=== PATIENT | female | born 1995 | race Caucasian/White ===

== ENCOUNTER → 2017-04-07 | Outpatient (CLI) | payer BC ==
[2017-04-10 12:09] LABS: CHLAMYDIA TRACH RNA*** NOT DETECTED (NOT DETECTED); GC (NEIS GONORRHOEAE)RNA** NOT DETECTED (NOT DETECTED); TRICHOMONAS VAGINALIS RNA** NOT DETECTED (NOT DETECTED)
== END | disposition home or self-care (01) ==
LOC: C.LABSPEC 16:16
PROVIDERS: ATTEND Physician Assistant
DX: R30.0 Dysuria (principal); Z86.19 Personal history of other infectious and parasitic diseases

== ENCOUNTER → 2017-04-08 | Outpatient (CLI) | payer BC ==
[2017-04-08 13:40] LABS: URINE APPEARANCE CLEAR (CLEAR); URINE BILIRUBIN NEG (NEG); URINE COLOR YELLOW; URINE EPITHELIAL CELL AUTO >30 /lpf (0-5); URINE NITRITE NEG (NEG); URINE PH 6.5 (4.5-7.5); UROBILINOGEN NEG (NEG)
[2017-04-08 13:48] LABS: MANUAL MICROSCOPIC REQUIRED? NO; REVIEW REQ? NO
== END | disposition home or self-care (01) ==
LOC: C.LAB1850 12:02
PROVIDERS: ATTEND Physician Assistant
DX: R30.0 Dysuria (principal)

== ENCOUNTER → 2017-07-22 | Outpatient (CLI) | payer BC | END | disposition home or self-care (01) | LOC: C.LABSPEC 17:29 | PROVIDERS: ATTEND Physician Assistant | DX: Z01.419 Encounter for gynecological examination (general) (routine) without abnormal findings (principal) ==

== ENCOUNTER → 2017-08-19 | Outpatient (CLI) | payer BC | END | disposition home or self-care (01) | LOC: C.LABSPEC 13:15 | PROVIDERS: ATTEND Physician Assistant | DX: N89.8 Other specified noninflammatory disorders of vagina (principal) ==

== ENCOUNTER 2019-01-01 14:37 | Inpatient (IN) ==
[2019-01-01] MEDS ORDERED: MECLIZINE HCL 25 MG TAB PO STA (15:25)
[2019-01-01] MEDS ORDERED: SODIUM CHLORIDE 0.9% 1000ML 1,000 ML IV ONE (15:25)
--- NOTE | 2019-01-01 15:46 | Emergency Department Note ---
History of Present Illness General Chief Complaint: Altered Mental Status Stated Complaint: VISION PROBLEMS Source: patient Mode of arrival: ambulatory Limitations: no limitations History of Present Illness Provider complaint: altered mental status and confusion Onset (ago): hour(s) 4 Timing confirmed by: friend Severity: moderate Current Pain Intensity: 0 Consistency of symptoms: getting worse Context: no alcohol abuse, no drug abuse, no change in medication, no history of similar presentation, no trauma, no recent fever, no diabetes and no seizure disorder Associated symptoms: + headaches and + other (dizziness) Treatments prior to arrival: none This 23-year-old female patient presents emergency department today, ambulatory, accompanied by a male friend. The patient is complaining of "dizzy". She states this began this morning but has been progressively worsening. The patient's friend who is accompanying her said that over the past few hours, she has been complaining of being very dizzy, think she is having difficulty seeing and is seeing things that are not there. He states that she is saying random things but do not make sense. The patient states she did start a new job 1 week ago. She had a little bit of a headache earlier today, but denies any ongoing h eadache. She initially states she was having some diplopia, then states she was having some blurry vision, but then states she is uncertain if those things are true. The symptoms seemed to significantly worsened 1 hour ago. She states that she last saw an house detective in [place] last year, but then states she thinks she has seen an tin worker on [facility] since then, but is unsure. She does wear glasses and contacts and states she currently has her contacts in. The patient states before the dizziness was only with standing, but then she developed the dizziness at all times. She describes this as things are spinning. She denies any pain including chest pain, abdominal pain, nausea, vomiting, numbness, tingling, weakness, difficulty breathing, urinary symptoms, diarrhea, constipation, neck pain, or recent trauma. She denies any recent illness, cough, URI symptoms, or fever. When asked if she was having any abdominal pain, the patient was confused and asked me to clarify the question. Her last menstrual period was 1 week ago, and she believes this was normal. She is sexually active, but states she took a test after her most recent sexual encounter 2 weeks ago. She denies any drug or alcohol use, and states she does not believe she could have been drugged. Home Medications Home Medications Medication Instructions Recorded Confirmed Type doxycycline monohydrate 50 mg 50 mg PO BID #30 tab 11/02/18 01/01/19 History tablet drospirenone-ethinyl estradiol 1 tab PO DAILY 01/01/19 01/01/19 History [Ocella] Allergies Allergy/AdvReac Type Severity Reaction Status Date / Time No Known Allergies Allergy Unverified 01/01/19 17:14 Past Med/Surg History Medical History Acne Social History Preferred Language: Japanese Beliefs That Will Affect Care: None marital status: Single Current Living Situation: Family current occupational status: employed current occupation: direct support Other Information That Helps Us Care for You: No Feels Safe at Home: Yes Safety Concerns: Feels Safe At This Time Smoking Status: Never smoker Second Hand Exposure: No ; Hx Alcohol Use: No Hx Substance Use: No Dental Care, Regularly: Yes Physical Activity Frequency: Does not Exercise Review of Systems A total of 10 systems reviewed and were otherwise negative Physical Exam Vital Signs Vital Signs - 24 hr 01/01/19 14:40 01/01/19 17:00 01/01/19 17:13 Temperature 36.9 C Temperature Source Oral Sepsis Recent Fever Within 48 Hours No Sepsis New/Unexplained Change in Mental Status No Sepsis Action Taken by Nursing No Action Required Pulse Rate 108 H 93 H 98 H Pulse Rate from SpO2 Sensor 90 99 H Respiratory Rate 18 21 22 Respiratory Depth Normal Blood Pressure 163/84 H 109/66 Blood Pressure Mean 110 80 Pulse Oximetry 99 99 99 Oxygen Delivery Method Room Air 01/01/19 17:23 01/01/19 17:30 01/01/19 17:51 Temperature Temperature Source Sepsis Recent Fever Within 48 Hours Sepsis New/Unexplained Change in Mental Status Sepsis Action Taken by Nursing Pulse Rate 100 H 89 Pulse Rate from SpO2 Sensor 100 H 88 Respiratory Rate 24 21 Respiratory Depth Blood Pressure 102/66 120/67 Blood Pressure Mean 78 84 Pulse Oximetry 99 98 99 Oxygen Delivery Method Room Air Room Air Room Air 01/01/19 18:00 01/01/19 18:15 01/01/19 18:30 Temperature Temperature Source Sepsis Recent Fever Within 48 Hours Sepsis New/Unexplained Change in Mental Status Sepsis Action Taken by Nursing Pulse Rate 97 H 90 90 Pulse Rate from SpO2 Sensor 94 H 89 90 Respiratory Rate 21 18 22 Respiratory Depth Blood Pressure 114/72 108/56 L 124/65 Blood Pressure Mean 86 73 84 Pulse Oximetry 99 99 Oxygen Delivery Method Room Air Room Air 01/01/19 18:45 01/01/19 19:00 01/01/19 19:30 Temperature Temperature Source Sepsis Recent Fever Within 48 Hours Sepsis New/Unexplained Change in Mental Status Sepsis Action Taken by Nursing Pulse Rate 90 97 H 100 H Pulse Rate from SpO2 Sensor 93 H 98 H Respiratory Rate 22 19 21 Respiratory Depth Blood Pressure 110/64 113/72 Blood Pressure Mean 79 85 Pulse Oximetry 100 100 99 Oxygen Delivery Method Room Air 01/01/19 20:00 01/01/19 20:30 01/01/19 21:00 Temperature Temperature Source Sepsis Recent Fever Within 48 Hours Sepsis New/Unexplained Change in Mental Status Sepsis Action Taken by Nursing Pulse Rate 91 H 67 91 H Pulse Rate from SpO2 Sensor Respiratory Rate 18 16 19 Respiratory Depth Blood Pressure Blood Pressure Mean Pulse Oximetry 100 97 98 Oxygen Delivery Method Room Air Room Air Room Air 01/01/19 21:15 Temperature Temperature Source Sepsis Recent Fever Within 48 Hours Sepsis New/Unexplained Change in Mental Status Sepsis Action Taken by Nursing Pulse Rate 80 Pulse Rate from SpO2 Sensor 81 Respiratory Rate 14 Respiratory Depth Blood Pressure 104/56 L Blood Pressure Mean 72 Pulse Oximetry 99 Oxygen Delivery Method Room Air VITALS: Vitals are noted on the nurse's note and reviewed by myself. The patient is hypertensive and tachycardic. She is not hypoxic or febrile. GENERAL: This is a 23 year old white female, in no acute distress, nondiaphoretic, well-developed well-nourished. The patient is confused, crying, and upset. She states she is nervous about what might be going on. Throughout the examination, she is making comments that are nonsensical, such as "there is a boy". When asked about this, she states "a boy", and I questioned if she is seeing a boy, and she states "no do not worry about it". SKIN: The skin was without rashes, erythema, edema, or bruising. There is no tenting of the skin. Capillary reflex less than 2 seconds. HEAD: Normocephalic atraumatic. EARS: External auditory canals clear, tympanic membranes pearly charles without erythema or effusion bilaterally. Negative vang sign. No hemotympanum. EYES: Pupils equal round and reactive to light and accommodation. Conjunctivae without injection, sclerae without icterus. Extraocular movements intact. No nystagmus noted. No swelling or discoloration of the tissue surrounding the eyes. NOSE: Patent, turbinates without inflammation or discharge. No sinus tende rness. MOUTH: Mucous membranes moist. Tonsils are not enlarged. Pharynx without erythema or exudate. Uvula midline. Airway patent. Tongue does not deviate. NECK: Supple without nuchal rigidity. No lymphadenopathy. No thyromegaly. Cervical spine is nontender. No JVD. HEART: Regular rate and rhythm without murmurs gallops or rubs. LUNGS: Clear to auscultation bilaterally without wheezes, rales or rhonchi. No dullness to percussion. No retractions or accessory muscle use. ABDOMEN: Positive bowel sounds x 4. Normal tympanic percussion. Soft, nontender, without masses or organomegaly. Bass sign negative. No guarding or rebound tenderness. MUSCULOSKELETAL: No muscle atrophy, erythema, or edema noted. Full range of motion without joint tenderness in all extremities. No tenderness to palpation. Normal gait. Strength 5/5 throughout. NEURO: Patient was alert and oriented to person place and time. She is making statements as previously noted which are nonsensical. Normal sensation to light and sharp touch. Deep tendon reflexes 2+ throughout. No focal neurological deficits. Cranial nerves II through XII grossly intact. Course The patient was seen and evaluated as above. I did discuss case with my attending physician. IV access obtained, labs drawn. The patient was medicated with IV fluids and meclizine. Imaging performed and reviewed by myself and radiologist as above. Labs reviewed by myself. I discussed the findings with the patient at bedside. Her family is now present and states she continues to act abnormally with nonsensical words and slurred speech. We did elect to perform a lumbar puncture. Please see procedure note by Dr. Ruiz. The patient was lied flat for an hour while awaiting LP results. She was reassessed and is feeling better, but family states she is still not at baseline. I discussed LP findings at bedside. I did recommend admission for observation given her symptoms, and the family and patient were agreeable. I discussed the case with Dr. Junior. He did agree to see and evaluate the patient for admission. Please see his dictation regarding ongoing management care of this patient. Administered Medications Gadobutrol (Gadavist 30ml) 6 ml IV ONCE PRN PRN Reason: Interaction Checking Stop: 01/05/19 22:54 Last Admin: 01/01/19 22:55 Dose: 6 ml Documented by: [id number] Miscellaneous (Order Awaiting Action) 1 ea N/A QS MARICARMEN Stop: 02/01/19 00:00 Last Admin: 01/01/19 23:18 Dose: Not Given Documented by: [id number] Discontinued Medications Sodium Chloride (Nss 1000ml) 1,000 mls @ 999 mls/hr IV .[id number] ONE Stop: 01/01/19 16:25 Last Infusion: 01/01/19 17:01 Dose: 0 mls/hr Documented by: [id number] Admin: 01/01/19 16:00 Dose: 999 mls/hr Documented by: [id number] Meclizine HCl (Antivert) 25 mg PO NOW STA Stop: 01/01/19 15:26 Last Admin: 01/01/19 20:23 Dose: Not Given Documented by: [id number] Meclizine HCl (Antivert) Confirm Administered Dose 25 mg PO .STK-MED ONE Stop: 01/01/19 18:14 Last Admin: 01/01/19 19:05 Dose: Not Given Documented by: [id number] Medical Decision Making Differential Diagnosis infection, electrolyte abnormalities, dysrhythmia, CVA, ICH, toxicologic, ne urologic, ACS, alcoholic intoxication, altered mental status, delirium, dementia, hypoglycemia, hyponatremia, subarachnoid hemorrhage and sepsis Medical Records Attestation: I reviewed the patient's medical records. No psychiatric history or documented history of drug or alcohol abuse. Home Medications Current Medication List: was personally reviewed by me Laboratory Data Attestation: I reviewed the patient's lab results. No leukocytosis, anemia, thrombocytopenia. Renal, hepatic function, and electrolytes without significant abnormality. Inflammatory markers not elevated. Coags normal. TSH 0.622. Vitamin B12 and folic acid normal. Lipase 58. hCG negative. Alcohol and drug screen negative. Lyme disease testing negative. Lactic acid 0.8. Blood cultures pending. Urinalysis without evidence of blood or infection. CSF fluid without blood, leukocytosis, or abnormalities with glucose or protein. : 01/01/19 15:49 01/01/19 15:49 Lab Results 01/01/19 01/01/19 01/01/19 Range/Units 15:49 15:49 15:49 WBC 4.77 L (4.8-10.8) K/uL RBC 4.95 (4.2-5.4) M/uL Hgb 14.4 (12.0-16.0) g/dL Hct 41.4 (37-47) % MCV 83.6 (80-100) fL MCH 29.1 (25-34) pg MCHC 34.8 (32-36) g/dL RDW Std Deviation 38.7 (36.4-46.3) fL RDW Coeff of Gloria 12.8 (11.5-14.5) % Plt Count 246 (130-400) K/uL MPV 10.2 (7.4-10.4) fL Immature Gran % (Auto) 0.2 % Neut % (Auto) 67.7 % Lymph % (Auto) 23.1 % [place] % (Auto) 6.5 % Eos % (Auto) 2.3 % Baso % (Auto) 0.2 % Immature Gran # (Auto) 0.01 (0.00-0.02) K/uL Neut # (Auto) 3.23 (1.4-6.5) K/uL Lymph # (Auto) 1.10 L (1.2-3.4) K/uL [place] # (Auto) 0.31 (0.11-0.59) K/uL Eos # (Auto) 0.11 (0-0.5) K/uL Baso # (Auto) 0.01 (0-0.2) K/uL Absolute Nucleated RBC 0.00 (0-0) K/uL Nucleated RBC % (auto) 0.0 % ESR 13 (0-21) mm/hr PT (9.0-12.0) Seconds INR (0.9-1.1) APTT (21.0-31.0) Seconds PTT Ratio Sodium Potassium Chloride Carbon Dioxide Anion Gap BUN Creatinine Est Cr Clr Drug Dosing Est GFR ( Amer) Est GFR (Non-Af Amer) BUN/Creatinine Ratio Glucose Lactate (0.4-2.0) mmol/L Calcium Magnesium (1.8-2.4) mg/dl Total Bilirubin AST ALT Alkaline Phosphatase Troponin I (0-0.045) ng/ml Total Protein Albumin Globulin Albumin/Globulin Ratio Lipase (73-393) U/L Vitamin B12 (211-911) pg/ml Folate Cancelled TSH (0.300-4.500) uIu/ml HCG, Qual (Negative) Urine Color Urine Appearance (Clear) Urine pH (4.5-7.5) Ur Specific [place] (1.000-1.030) Urine Protein (Negative) Urine Glucose (UA) (Negative) Urine Ketones (Negative) Urine Blood (Negative) Urine Nitrite (Negative) Urine Bilirubin (Negative) Urine Urobilinogen (Negative) Ur Leukocyte Esterase (Negative) Urine WBC (Auto) (0-5) /hpf Urine RBC (Auto) (0-4) /hpf U Hyaline Cast (Auto) (0-5) /lpf U Epithel Cells (Auto) (0-5) /lpf Urine Bacteria (Auto) (Negative) CSF Appearance CSF Color Xanthrochromic CSF WBC (0-5) /uL CSF RBC (0-) /uL CSF Cell Count Tube # CSF Chemistry Tube # CSF Glucose (40-70) mg/dl CSF Total Protein (15-45) mg/dl Urine Opiates Screen (Neg) Ur Methadone, Qual (Neg) Urine Barbiturates (Neg) Ur Phencyclidine (PCP) (Neg) U Amphetamin/Meth Scrn (Neg) MDMA (Ecstasy) Screen (Neg) U Benzodiazepines Scrn (Neg) Ur Cocaine Metabolite (Neg) U Marijuana (THC) Screen (Neg) Ethyl Alcohol mg/dL (0-3) mg/dl Lyme Disease IgG Ab (Negative) Lyme Disease IgM Ab (Negative) 01/01/19 01/01/19 01/01/19 Range/Units 15:49 15:49 15:49 WBC (4.8-10.8) K/uL RBC (4.2-5.4) M/uL Hgb (12.0-16.0) g/dL Hct (37-47) % MCV (80-100) fL MCH (25-34) pg MCHC (32-36) g/dL RDW Std Deviation (36.4-46.3) fL RDW Coeff of Gloria (11.5-14.5) % Plt Count (130-400) K/uL MPV (7.4-10.4) fL Immature Gran % (Auto) % Neut % (Auto) % Lymph % (Auto) % [place] % (Auto) % Eos % (Auto) % Baso % (Auto) % Immature Gran # (Auto) (0.00-0.02) K/uL Neut # (Auto) (1.4-6.5) K/uL Lymph # (Auto) (1.2-3.4) K/uL [place] # (Auto) (0.11-0.59) K/uL Eos # (Auto) (0-0.5) K/uL Baso # (Auto) (0-0.2) K/uL Absolute Nucleated RBC (0-0) K/uL Nucleated RBC % (auto) % ESR (0-21) mm/hr PT 10.4 (9.0-12.0) Seconds INR 1.0 (0.9-1.1) APTT 27.6 (21.0-31.0) Seconds PTT Ratio 1.0 Sodium Cancelled 140 Potassium Cancelled 3.4 L Chloride Cancelled 106 Carbon Dioxide Cancelled 28 Anion Gap Cancelled 6.0 BUN Cancelled 12 Creatinine Cancelled 0.95 Est Cr Clr Drug Dosing Cancelled 87.7 Est GFR ( Amer) Cancelled 99.2 Est GFR (Non-Af Amer) Cancelled 85.6 BUN/Creatinine Ratio Cancelled 12.4 Glucose Cancelled 92 Lactate (0.4-2.0) mmol/L Calcium Cancelled 9.2 Magnesium 2.1 (1.8-2.4) mg/dl Total Bilirubin Cancelled 0.4 AST Cancelled 15 ALT Cancelled 17 Alkaline Phosphatase Cancelled 99 Troponin I < 0.015 (0-0.045) ng/ml Total Protein Cancelled 8.0 Albumin Cancelled 4.0 Globulin Cancelled 4.0 Albumin/Globulin Ratio Cancelled 1.0 Lipase 58 L (73-393) U/L Vitamin B12 (211-911) pg/ml Folate TSH 0.622 (0.300-4.500) uIu/ml HCG, Qual (Negative) Urine Color Urine Appearance (Clear) Urine pH (4.5-7.5) Ur Specific [place] (1.000-1.030) Urine Protein (Negative) Urine Glucose (UA) (Negative) Urine Ketones (Negative) Urine Blood (Negative) Urine Nitrite (Negative) Urine Bilirubin (Negative) Urine Urobilinogen (Negative) Ur Leukocyte Esterase (Negative) Urine WBC (Auto) (0-5) /hpf Urine RBC (Auto) (0-4) /hpf U Hyaline Cast (Auto) (0-5) /lpf U Epithel Cells (Auto) (0-5) /lpf Urine Bacteria (Auto) (Negative) CSF Appearance CSF Color Xanthrochromic CSF WBC (0-5) /uL CSF RBC (0-) /uL CSF Cell Count Tube # CSF Chemistry Tube # CSF Glucose (40-70) mg/dl CSF Total Protein (15-45) mg/dl Urine Opiates Screen (Neg) Ur Methadone, Qual (Neg) Urine Barbiturates (Neg) Ur Phencyclidine (PCP) (Neg) U Amphetamin/Meth Scrn (Neg) MDMA (Ecstasy) Screen (Neg) U Benzodiazepines Scrn (Neg) Ur Cocaine Metabolite (Neg) U Marijuana (THC) Screen (Neg) Ethyl Alcohol mg/dL (0-3) mg/dl Lyme Disease IgG Ab (Negative) Lyme Disease IgM Ab (Negative) 01/01/19 01/01/19 01/01/19 Range/Units 15:49 15:49 15:49 WBC (4.8-10.8) K/uL RBC (4.2-5.4) M/uL Hgb (12.0-16.0) g/dL Hct (37-47) % MCV (80-100) fL MCH (25-34) pg MCHC (32-36) g/dL RDW Std Deviation (36.4-46.3) fL RDW Coeff of Gloria (11.5-14.5) % Plt Count (130-400) K/uL MPV (7.4-10.4) fL Immature Gran % (Auto) % Neut % (Auto) % Lymph % (Auto) % [place] % (Auto) % Eos % (Auto) % Baso % (Auto) % Immature Gran # (Auto) (0.00-0.02) K/uL Neut # (Auto) (1.4-6.5) K/uL Lymph # (Auto) (1.2-3.4) K/uL [place] # (Auto) (0.11-0.59) K/uL Eos # (Auto) (0-0.5) K/uL Baso # (Auto) (0-0.2) K/uL Absolute Nucleated RBC (0-0) K/uL Nucleated RBC % (auto) % ESR (0-21) mm/hr PT (9.0-12.0) Seconds INR (0.9-1.1) APTT (21.0-31.0) Seconds PTT Ratio Sodium Potassium Chloride Carbon Dioxide Anion Gap BUN Creatinine Est Cr Clr Drug Dosing Est GFR ( Amer) Est GFR (Non-Af Amer) BUN/Creatinine Ratio Glucose Lactate (0.4-2.0) mmol/L Calcium Magnesium (1.8-2.4) mg/dl Total Bilirubin AST ALT Alkaline Phosphatase Troponin I (0-0.045) ng/ml Total Protein Albumin Globulin Albumin/Globulin Ratio Lipase (73-393) U/L Vitamin B12 400 (211-911) pg/ml Folate > 24.00 TSH (0.300-4.500) uIu/ml HCG, Qual Negative (Negative) Urine Color Urine Appearance (Clear) Urine pH (4.5-7.5) Ur Specific [place] (1.000-1.030) Urine Protein (Negative) Urine Glucose (UA) (Negative) Urine Ketones (Negative) Urine Blood (Negative) Urine Nitrite (Negative) Urine Bilirubin (Negative) Urine Urobilinogen (Negative) Ur Leukocyte Esterase (Negative) Urine WBC (Auto) (0-5) /hpf Urine RBC (Auto) (0-4) /hpf U Hyaline Cast (Auto) (0-5) /lpf U Epithel Cells (Auto) (0-5) /lpf Urine Bacteria (Auto) (Negative) CSF Appearance CSF Color Xanthrochromic CSF WBC (0-5) /uL CSF RBC (0-) /uL CSF Cell Count Tube # CSF Chemistry Tube # CSF Glucose (40-70) mg/dl CSF Total Protein (15-45) mg/dl Urine Opiates Screen (Neg) Ur Methadone, Qual (Neg) Urine Barbiturates (Neg) Ur Phencyclidine (PCP) (Neg) U Amphetamin/Meth Scrn (Neg) MDMA (Ecstasy) Screen (Neg) U Benzodiazepines Scrn (Neg) Ur Cocaine Metabolite (Neg) U Marijuana (THC) Screen (Neg) Ethyl Alcohol mg/dL < 3.0 (0-3) mg/dl Lyme Disease IgG Ab Negative (Negative) Lyme Disease IgM Ab Negative (Negative) 01/01/19 01/01/19 01/01/19 Range/Units 16:06 16:20 16:20 WBC (4.8-10.8) K/uL RBC (4.2-5.4) M/uL Hgb (12.0-16.0) g/dL Hct (37-47) % MCV (80-100) fL MCH (25-34) pg MCHC (32-36) g/dL RDW Std Deviation (36.4-46.3) fL RDW Coeff of Gloria (11.5-14.5) % Plt Count (130-400) K/uL MPV (7.4-10.4) fL Immature Gran % (Auto) % Neut % (Auto) % Lymph % (Auto) % [place] % (Auto) % Eos % (Auto) % Baso % (Auto) % Immature Gran # (Auto) (0.00-0.02) K/uL Neut # (Auto) (1.4-6.5) K/uL Lymph # (Auto) (1.2-3.4) K/uL [place] # (Auto) (0.11-0.59) K/uL Eos # (Auto) (0-0.5) K/uL Baso # (Auto) (0-0.2) K/uL Absolute Nucleated RBC (0-0) K/uL Nucleated RBC % (auto) % ESR (0-21) mm/hr PT (9.0-12.0) Seconds INR (0.9-1.1) APTT (21.0-31.0) Seconds PTT Ratio Sodium Potassium Chloride Carbon Dioxide Anion Gap BUN Creatinine Est Cr Clr Drug Dosing Est GFR ( Amer) Est GFR (Non-Af Amer) BUN/Creatinine Ratio Glucose Lactate 0.8 (0.4-2.0) mmol/L Calcium Magnesium (1.8-2.4) mg/dl Total Bilirubin AST ALT Alkaline Phosphatase Troponin I (0-0.045) ng/ml Total Protein Albumin Globulin Albumin/Globulin Ratio Lipase (73-393) U/L Vitamin B12 (211-911) pg/ml Folate TSH (0.300-4.500) uIu/ml HCG, Qual (Negative) Urine Color Yellow Urine Appearance Clear (Clear) Urine pH 6.5 (4.5-7.5) Ur Specific [place] 1.010 (1.000-1.030) Urine Protein Negative (Negative) Urine Glucose (UA) Negative (Negative) Urine Ketones Negative (Negative) Urine Blood Negative (Negative) Urine Nitrite Negative (Negative) Urine Bilirubin Negative (Negative) Urine Urobilinogen Negative (Negative) Ur Leukocyte Esterase Trace H (Negative) Urine WBC (Auto) 1-5 (0-5) /hpf Urine RBC (Auto) 0-4 (0-4) /hpf U Hyaline Cast (Auto) 0 (0-5) /lpf U Epithel Cells (Auto) >30 H (0-5) /lpf Urine Bacteria (Auto) Negative (Negative) CSF Appearance CSF Color Xanthrochromic CSF WBC (0-5) /uL CSF RBC (0-) /uL CSF Cell Count Tube # CSF Chemistry Tube # CSF Glucose (40-70) mg/dl CSF Total Protein (15-45) mg/dl Urine Opiates Screen Neg (Neg) Ur Methadone, Qual Neg (Neg) Urine Barbiturates Neg (Neg) Ur Phencyclidine (PCP) Neg (Neg) U Amphetamin/Meth Scrn Neg (Neg) MDMA (Ecstasy) Screen Neg (Neg) U Benzodiazepines Scrn Neg (Neg) Ur Cocaine Metabolite Neg (Neg) U Marijuana (THC) Screen Neg (Neg) Ethyl Alcohol mg/dL (0-3) mg/dl Lyme Disease IgG Ab (Negative) Lyme Disease IgM Ab (Negative) 01/01/19 Range/Units 17:40 WBC (4.8-10.8) K/uL RBC (4.2-5.4) M/uL Hgb (12.0-16.0) g/dL Hct (37-47) % MCV (80-100) fL MCH (25-34) pg MCHC (32-36) g/dL RDW Std Deviation (36.4-46.3) fL RDW Coeff of Gloria (11.5-14.5) % Plt Count (130-400) K/uL MPV (7.4-10.4) fL Immature Gran % (Auto) % Neut % (Auto) % Lymph % (Auto) % [place] % (Auto) % Eos % (Auto) % Baso % (Auto) % Immature Gran # (Auto) (0.00-0.02) K/uL Neut # (Auto) (1.4-6.5) K/uL Lymph # (Auto) (1.2-3.4) K/uL [place] # (Auto) (0.11-0.59) K/uL Eos # (Auto) (0-0.5) K/uL Baso # (Auto) (0-0.2) K/uL Absolute Nucleated RBC (0-0) K/uL Nucleated RBC % (auto) % ESR (0-21) mm/hr PT (9.0-12.0) Seconds INR (0.9-1.1) APTT (21.0-31.0) Seconds PTT Ratio Sodium Potassium Chloride Carbon Dioxide Anion Gap BUN Creatinine Est Cr Clr Drug Dosing Est GFR ( Amer) Est GFR (Non-Af Amer) BUN/Creatinine Ratio Glucose Lactate (0.4-2.0) mmol/L Calcium Magnesium (1.8-2.4) mg/dl Total Bilirubin AST ALT Alkaline Phosphatase Troponin I (0-0.045) ng/ml Total Protein Albumin Globulin Albumin/Globulin Ratio Lipase (73-393) U/L Vitamin B12 (211-911) pg/ml Folate TSH (0.300-4.500) uIu/ml HCG, Qual (Negative) Urine Color Urine Appearance (Clear) Urine pH (4.5-7.5) Ur Specific [place] (1.000-1.030) Urine Protein (Negative) Urine Glucose (UA) (Negative) Urine Ketones (Negative) Urine Blood (Negative) Urine Nitrite (Negative) Urine Bilirubin (Negative) Urine Urobilinogen (Negative) Ur Leukocyte Esterase (Negative) Urine WBC (Auto) (0-5) /hpf Urine RBC (Auto) (0-4) /hpf U Hyaline Cast (Auto) (0-5) /lpf U Epithel Cells (Auto) (0-5) /lpf Urine Bacteria (Auto) (Negative) CSF Appearance Clear CSF Color Colorless Xanthrochromic No xanthochromia CSF WBC 1 (0-5) /uL CSF RBC 0 (0-) /uL CSF Cell Count Tube # 3 CSF Chemistry Tube # 1 CSF Glucose 53 (40-70) mg/dl CSF Total Protein 34.7 (15-45) mg/dl Urine Opiates Screen (Neg) Ur Methadone, Qual (Neg) Urine Barbiturates (Neg) Ur Phencyclidine (PCP) (Neg) U Amphetamin/Meth Scrn (Neg) MDMA (Ecstasy) Screen (Neg) U Benzodiazepines Scrn (Neg) Ur Cocaine Metabolite (Neg) U Marijuana (THC) Screen (Neg) Ethyl Alcohol mg/dL (0-3) mg/dl Lyme Disease IgG Ab (Negative) Lyme Disease IgM Ab (Negative) Imaging Data Radiologist's Impression: CT head/brain wo con CLINICAL HISTORY: 23 years-old Female with AMS. Acutely altered mental status TECHNIQUE: Multiple axial CT images of the head were obtained without contrast. A dose lowering technique was utilized adhering to the principles of ALARA. CT DOSE: 537.48 mGy.cm COMPARISON: Brain MRI 12/06/2015 FINDINGS: No acute intracranial hemorrhage, midline shift, intracranial mass, hydrocephalus, territorial ischemia or abnormal extra-axial collection. The calvarium is intact. The paranasal sinuses, mastoid air cells, and middle ear cavities are clear. IMPRESSION: Normal CT of the head. The above report was generated using voice recognition software. It may contain grammatical, syntax or spelling errors. Electronically signed by: Miguel Mueller M.D. 01/01/2019 4:52 PM XR chest 1V portable HISTORY: 23 years-old Female dizziness, AMS acute dizziness with altered mental status COMPARISON: Chest radiograph 05/11/2015 TECHNIQUE: Portable AP view of the chest FINDINGS: Cardiomediastinal and hilar silhouettes are within normal limits. No pneumothorax, pleural effusion, focal airspace consolidation or overt pulmonary edema. Bones of the chest appear grossly intact. IMPRESSION: No acute process. The above report was generated using voice recognition software. It may contain grammatical, syntax or spelling errors. Electronically signed by: Miguel Mueller M.D. 01/01/2019 3:49 PM ECG Data Attestation: I personally reviewed and interpreted this ECG as follows: Indication: altered mental status Rate (beats per minute): 103 Rhythm: sinus tachycardia Findings: no T-wave inversion, no ST elevation, no acute ischemic change and no ectopy Comparison ECG Date: from (05/2015) Change: no significant change Prescription Drug Monitoring [place] Drug Monitoring [place] reviewed and no issues identified Blood Pressure Blood Pressure Findings: Elevated blood pressure Blood Pressure Disposition: elevated BP felt to be situational Head Trauma GCS Score: 15 MDM Narrative This 23-year-old female patient presents emergency department today with com plaints of diplopia, visual disturbances, dizziness, altered mental status, and slurred speech. It was initially very concerned due to the patient's examination and symptoms. I elected to perform a very extensive work-up including labs and imaging. These did not show any acute abnormalities. We did elect to perform a lumbar puncture to evaluate CSF for meningitis or bleed. Preliminary testing was negative as well. Lyme testing is pending. Upon several reevaluation, the patient's symptoms improved, but she continued to experience some episodes of nonsensical speech and her family and friends at bedside states she is not back to her baseline. At times, she feels normal, but continues to act somewhat confused. Patient scored 1 on the stroke scale. Mini-Mental status was 29/30. I did ask for evaluation by the psychiatric human services case manager in case of psych etiology, but he was unclear and states that the patient had some history of anxiety and depression, but otherwise is not suicidal or homicidal. The patient denied any significant psychiatric history, and her family denies any family history of psychiatric conditions or similar symptoms. We did ultimately elect to admit the patient to the hospitalist service for further evaluation and possible observation given her ongoing s lurred speech, confusion, and complaints of visual disturbances. Please see hospitalist dictation regarding ongoing management and care of this patient. The chart was completed utilizing [employer] voice recognition software. Grammatical errors, random word insertions, pronoun errors, and incomplete sentences are an occasional consequence of this system due to software limitations, ambient noise, and hardware issues. Any formal questions or concerns about the content, text, or information contained within the body of this dictation should be directly addressed to the provider for clarification. Impression & Plan Altered mental status, Diplopia Discharge Plan Visit Data *Final* Discharge Date/Time: 01/01/19 21:44 Chief Complaint: Altered Mental Status Stated Complaint: VISION PROBLEMS ED Provider: Joseph,Jmaie R ED Midlevel Provider: Kacie Arias Discharge Problem: Altered mental status, Diplopia Patient Disposition: Still a Patient Condition: Good Discharge Instructions Interventions: ED Discharge Assessment Last Done: 01/01/19 21:44
--- NOTE | 2019-01-01 15:50 | XRay Report ---
XR chest 1V portable HISTORY: 23 years-old Female dizziness, AMS acute dizziness with altered mental status COMPARISON: Chest radiograph 05/11/2015 TECHNIQUE: Portable AP view of the chest FINDINGS: Cardiomediastinal and hilar silhouettes are within normal limits. No pneumothorax, pleural effusion, focal airspace consolidation or overt pulmonary edema. Bones of the chest appear grossly intact. IMPRESSION: No acute process. The above report was generated using voice recognition software. It may contain grammatical, syntax o r spelling errors. Electronically signed by: Miguel Mueller M.D. 01/01/2019 3:49 PM
[2019-01-01 16:02] LABS: Basophils # (auto) 0.01 K/uL (0-0.2); Basophils % (auto) 0.2 %; Eosinophils # (auto) 0.11 K/uL (0-0.5); Eosinophils % (auto) 2.3 %; Hematocrit (blood only) 41.4 % (37-47); Hemoglobin 14.4 g/dL (12.0-16.0); Immature Granulocytes # (auto) 0.01 K/uL (0.00-0.02); Immature Granulocytes % (auto) 0.2 %; Lymphocytes % (auto) 23.1 %; Mean Corpuscular Hgb Conc 34.8 g/dL (32-36); Mean Corpuscular Volume 83.6 fL (80-100); Mean Platelet Volume 10.2 fL (7.4-10.4); Monocytes # (auto) 0.31 K/uL (0.11-0.59); Monocytes % (auto) 6.5 %; Neutrophils # (auto) 3.23 K/uL (1.4-6.5); Neutrophils % (auto) 67.7 %; Platelet Count 246 K/uL (130-400); RDW Coefficient of Variation 12.8 % (11.5-14.5); RDW Standard Deviation 38.7 fL (36.4-46.3); Red Blood Count 4.95 M/uL (4.2-5.4); White Blood Count 4.77 K/uL (4.8-10.8)
[2019-01-01 16:14] LABS: Partial Thromboplastin Time 27.6 Seconds (21.0-31.0); Prothrombin Time 10.4 Seconds (9.0-12.0)
[2019-01-01 16:24] LABS: Alanine Aminotransferase 17 U/L (12-78); Aspartate Aminotransferase 15 U/L (15-37); BUN Creatinine Ratio 12.4 (10-20); Blood Urea Nitrogen 12 mg/dl (7-18); Calcium 9.2 mg/dl (8.5-10.1); Carbon Dioxide 28 mmol/L (21-32); Chloride 106 mmol/L (98-107); Creatinine Clr Calc Pharmacy 87.7 ml/min; Est GFR (African American) 99.2; Est GFR (Non-African American) 85.6; Glucose 92 mg/dl (70-99); Magnesium 2.1 mg/dl (1.8-2.4); Potassium 3.4 mmol/L (3.5-5.1); Sodium 140 mmol/L (136-145)
[2019-01-01 16:25] LABS: Pregnancy Test, Serum Negative (Negative)
[2019-01-01 16:35] LABS: Alkaline Phosphatase 99 U/L (45-117); Bilirubin,Total 0.4 mg/dl (0.2-1); Folate (Folic Acid) > 24.00 ng/ml (>5.38); Troponin I < 0.015 ng/ml (0-0.045); Vitamin B12 400 pg/ml (211-911)
[2019-01-01 16:53] LABS: Lyme Ab IgG w/WB Rflx Negative (Negative); Lyme Ab IgM w/WB Rflx Negative (Negative)
--- NOTE | 2019-01-01 16:53 | CT Scan Report ---
CT head/brain wo con CLINICAL HISTORY: 23 years-old Female with AMS. Acutely altered mental status TECHNIQUE: Multiple axial CT images of the head were obtained without contrast. A dose lowering tech nique was utilized adhering to the principles of ALARA. CT DOSE: 537.48 mGy.cm COMPARISON: Brain MRI 12/06/2015 FINDINGS: No acute intracranial hemorrhage, midline shift, intracranial mass, hydrocephalus, territorial ischem ia or abnormal extra-axial collection. The calvarium is intact. The paranasal sinuses, mastoid air cells, and middle ear cavities are clear . IMPRESSION: Normal CT of the head. The above report was generated using voice recognition software. It may contain grammatical, syntax o r spelling errors. Electronically signed by: Miguel Mueller M.D. 01/01/2019 4:52 PM
[2019-01-01 17:19] LABS: Appearance Urine Clear (Clear); Bacteria Urine Automated Negative (Negative); Bilirubin Urine Negative (Negative); Blood Urine Negative (Negative); Cast Urine Automated 0 /lpf (0-5); Color Urine Yellow; Epithelial Cell Urine Auto >30 /lpf (0-5); Glucose Urine UA Negative (Negative); Ketones Urine Negative (Negative); Leukocyte Esterase Urine Trace (Negative); Nitrite Urine Negative (Negative); Protein Urine Negative (Negative); RBC Urine Automated 0-4 /hpf (0-4); Urobilinogen Urine Negative (Negative); pH Urine 6.5 (4.5-7.5)
[2019-01-01 17:40] LABS: Amphetamines+Metham, Urine Neg (Neg); Barbiturates, Urine Neg (Neg); Benzodiazepine, Urine Neg (Neg); Cocaine, Urine Neg (Neg); MDMA (Ecstacy), Urine Neg (Neg); Methadone, Urine Neg (Neg); Opiate, Urine Neg (Neg); Phencyclidine, Urine Neg (Neg)
--- NOTE | 2019-01-01 17:51 | Emergency Department Note ---
ED Visit Note Lumbar Puncture Indication: altered mental status. Verbal consent was obtained after the risks and benefits were explained, including but not limited to headache, bleeding/clotting, scarring, infection, pain, and bone/joint/nerve damage. At this time, the risks of the procedure are less than the risks of NOT performing the procedure. A time out was taken and the correct patient and site identified. The patient was placed in the seated position and the back was prepped with betadine and draped in the standard fashion. The L3 intervertebral space was identified, anesthetized locally with 1% lidocaine without epinephrine, and the spinal needle was inserted through the skin with the bevel parallel to the dural fibers. The needle was carefully advanced into the lumbar cistern and 4 tubes of clear CSF was obtained. The stylet was replaced and the needle was removed. A bandaid was placed and the patient was placed in the supine position. The patient tolerated the procedure well and there were no complications. This Patient was discussed with the physician occupational therapist's assistant, Kacie Arias PA-C. The pertinent historical and physical exam findings were confirmed. I agree with the studies ordered and with the interpretations of these studies. I agree with the disposition and care plan. . : Altered mental status Qualifiers: Altered mental status type: disorientation Qualified Code(s): R41.0 - Di sorientation, unspecified
[2019-01-01] MEDS ORDERED: MECLIZINE HCL 25 MG TAB PO ONE (18:13)
[2019-01-01 18:16] LABS: Appearance CSF Clear; CSF Count Tube # 3; CSF Xanthrochromic No xanthochromia; Color CSF Colorless; Red Blood Cell CSF (A) 0 /uL (0-); Red Blood Cell CSF (B) 0 /uL (0-); White Blood Cell CSF (A) 1 /uL (0-5); White Blood Cell CSF (B) 0 /uL (0-5)
[2019-01-01 18:30] LABS: CSF Glucose 53 mg/dl (40-70); Total Protein CSF 34.7 mg/dl (15-45)
[2019-01-01 19:01] LABS: CSF Chemistry Tube # 1
--- NOTE | 2019-01-01 21:41 | History & Physical Report ---
Date of Service January 01, 2019 Assessment & Plan (1) Diplopia: 23-year-old female with possible history of anxiety/depression per mother presented to the emergency room with male friend for concern of difficulty seeing/double vision, headache and lightheadedness which started earlier today. Symptoms have now resolved. Patient also per family/friend and history obtained is somewhat altered at times and does not make sense. Diplopia a/w mild BECERRA and dizziness concern for possible MS vs. vertigo vs. dehydration vs. infectious or psychiatric etiology Afebrile, WBC of 4.7 Normal lactate CSF analysis within normal limits, CSF Lyme, anaplasmosis pending -Lyme IgM and IgG negative CT head negative MRI MS protocol ordered to rule out MS -pending MS panel pending U tox negative alcohol level less than 3 Mild hypokalemia of 3.4 otherwise CMP within normal limits TSH, lipase, folate normal UA negative Chest x-ray negative CSF and blood culture pending Admitted to [facility] for monitoring Neurology consulted DVT prophylaxis: Encourage ambulation, SCDs Code: Full per discussion with patient and mother Dispo: Med/surg History of Present Illness Chief Complaint: Diplopia Primary Care Provider: Ingrid Cantu MD 23-year-old female with possible history of anxiety/depression per mother presented to the emergency room with male friend for concern of difficulty seeing/double vision, headache and lightheadedness which started earlier today. When I asked patient what brought her to the hospital, she reports "food and drink". Per male friend who I spoke to over the phone they had lunch at a [place] restaurant in [facility] then went to a store downtown at which point she reported trouble seeing then she decided to drive to the emergency room but when she got close to the hospital she reported difficulty seeing so he drove her the rest of the way to the emergency room. Per male friend she could not write her name in the emergency room, was "seeing sideways", reported room spinning sensation and headache. He also noted that she was slurring her speech. At the time of evaluation patient reported improved vision, headache, lightheadedness. She denied any chest pain, shortness of breath, nausea, vomiting, abdominal pain, constipation, diarrhea, dysuria. Per mother patient appears somewhat altered as she is saying things that do not make sense for instance even when I asked when her last bowel movement was she reports yesterday and says it was "white". Per mother patient had recognized mother. Mother reports possible history of anxiety or depression in the past but denies any other known psychiatric history. Family history of anxiety/depression but no other psychiatric conditions. Mother is unaware if patient uses any recreational drugs. Patient denied drinking alcohol or using any recreational drugs today or yesterday friend confirmed as well. Of note patient has started a new job about a week ago at [employer]. However mother reports patient has not complained of any significant stress related to new job. Mother spoke to patient yesterday and patient appeared to be at baseline. On revisit: Patient more coherent. Reports had another episode earlier and does not recall saying her bowel movement was white in color. Reports that was not the case it was normal yesterday. Reports occasionally getting some blurry vision which she previously believed was related to her contacts especially when standing. Denies any gait issues in the past. Reports trouble seeing which brought her to the emergency room. Had mild headache earlier today which has now improved and room spinning sensation with double vision episode. Also reports not hydrating well over the past few days she did not have drinking water at home. Denies any marijuana use now used to smoke a 2 to 3 years ago. Yesterday had half a glass of alcohol and denies any recreational drug use Allergies Allergy/AdvReac Type Severity Reaction Status Date / Time No Known Allergies Allergy Unverified 01/01/19 17:14 Home Medications Home Medications Medication Instructions Recorded Confirmed Type doxycycline monohydrate 50 mg 50 mg PO BID #30 tab 11/02/18 01/01/19 History tablet aspirin [Ecotrin Low Strength] 81 mg PO QAM #1 tab 01/02/19 Rx Past Med/Surg History Medical History Acne Social History Preferred Language: Syrian Beliefs That Will Affect Care: None marital status: Single Current Living Situation: Family current occupational status: employed current occupation: direct support Feels Safe at Home: Yes Smoking Status: Never smoker Second Hand Exposure: No ; Hx Alcohol Use: No Hx Substance Use: No Dental Care, Regularly: Yes Physical Activity Frequency: Does not Exercise Review of Systems Review of Systems: As per HPI Physical Exam Physical Exam: General: In NAD HEENT: PERRL, EOMI, dry mucous membranes Neuro: A&Ox4, CN 2-12 intact, Strength 5/5 bilateral upper and lower extremitie s, Sensation intact bilateral upper and lower extremities, DTR knees 2+ Pulm: CTAB equal breath sounds bilaterally CV: RRR, no m/r/g Abdomen:+BS, no TTP in all quadrants, non-distended LE: no LE edema, no calf TTP Gait: normal Results & Data Vital Signs (Past 12 Hours) Vital Signs Temp Pulse Resp BP Pulse Ox 01/01/19 21:15 80 14 104/56 L 99 01/01/19 21:00 91 H 19 98 01/01/19 20:30 67 16 97 01/01/19 20:00 91 H 18 100 01/01/19 19:30 100 H 21 99 01/01/19 19:00 97 H 19 113/72 100 01/01/19 18:45 90 22 110/64 100 01/01/19 18:30 90 22 124/65 99 01/01/19 18:15 90 18 108/56 L 01/01/19 18:00 97 H 21 114/72 99 01/01/19 17:51 89 21 120/67 99 01/01/19 17:30 100 H 24 102/66 98 01/01/19 17:23 99 01/01/19 17:13 98 H 22 99 01/01/19 17:00 93 H 21 109/66 99 01/01/19 14:40 36.9 C 108 H 18 163/84 H 99 Laboratory Results Abnormal lab results 01/01/19 01/01/19 01/01/19 Range/Units 15:49 15:49 16:20 WBC 4.77 L (4.8-10.8) K/uL Lymph # (Auto) 1.10 L (1.2-3.4) K/uL Potassium 3.4 L (3.5-5.1) mmol/L Lipase 58 L (73-393) U/L Ur Leukocyte Esterase Trace H (Negative) U Epithel Cells (Auto) >30 H (0-5) /lpf Diagnostic Findings CT head/brain wo con CLINICAL HISTORY: 23 years-old Female with AMS. Acutely altered mental status TECHNIQUE: Multiple axial CT images of the head were obtained without contrast. A dose lowering technique was utilized adhering to the principles of ALARA. CT DOSE: 537.48 mGy.cm COMPARISON: Brain MRI 12/06/2015 FINDINGS: No acute intracranial hemorrhage, midline shift, intracranial mass, hydrocephalus, territorial ischemia or abnormal extra-axial collection. The calvarium is intact. The paranasal sinuses, mastoid air cells, and middle ear cavities are clear. IMPRESSION: Normal CT of the head. XR chest 1V portable HISTORY: 23 years-old Female dizziness, AMS acute dizziness with altered mental status COMPARISON: Chest radiograph 05/11/2015 TECHNIQUE: Portable AP view of the chest FINDINGS: Cardiomediastinal and hilar silhouettes are within normal limits. No pneumothorax, pleural effusion, focal airspace consolidation or overt pulmonary edema. Bones of the chest appear grossly intact. IMPRESSION: No acute process. Code Status & VTE Plan Code Status Full VTE Prophylaxis Plan VTE Prophylaxis will be ordered: Yes Supervising Physician Co-Signing Physician Notes Attending addendum: I have physically seen this patient, have supervised the medical residents activities, and agree with the H&P unless as otherwise noted. Assessment and Plan: 9 mm left thalamic infarct- CTA head neck ordered and follow-up. Patient initially admitted to medical floor. Transfer to telemetry floor for monitoring. Arterial hypercoagulable work-up. 2D echocardiogram with Dopplers. Stroke without TPA protocol. Consult neurology. Remainder of orders and notations as noted. PG Care Time/CCT Total # of Minutes Spent Total Time Spent with Patient: Total time spent is greater than 50% in coordination of care (as documented) at patient's floor/unit and/or counseling patient: Resident Activity Tracking Resident Involvement: Resident Care Provided Care Provided: Adult Hospital Medicine
[2019-01-01] MEDS ORDERED: ACETAMINOPHEN 325 MG TAB PO PRN (22:15)
[2019-01-01] MEDS ORDERED: GADOBUTROL 30ML VIAL IV PRN (22:55)
[2019-01-02] MEDS ORDERED: PHARMACIST DISCHARGE MED REC CONSULT PRN (00:38)
[2019-01-02] MEDS ORDERED: SODIUM CHLORIDE 0.9% 1000ML 1,000 ML IV SCH (00:38)
[2019-01-02] MEDS ORDERED: OPTIRAY 320 125ml IV PRN (01:45)
--- NOTE | 2019-01-02 06:36 | Ultrasound Report ---
US venous doppler LE LT HISTORY: 23 years-old Female rule out DVT hx of stroke acute pain and swelling of the left lower ext remity COMPARISON: None available TECHNIQUE: Multiple real-time sonographic images of the left lower extremity deep venous structures w ere obtained assessing grayscale appearance, color and spectral flow FINDINGS: Normal flow, compressibility, phasicity and augmentation of the left lower extremity deep venous stru ctures. IMPRESSION: No sonographic evidence of deep venous thrombosis. The above report was generated using voice recognition software. It may contain grammatical, syntax o r spelling errors. Electronically signed by: Miguel Mueller M.D. 01/02/2019 6:35 AM
--- NOTE | 2019-01-02 08:43 | CT Scan Report ---
CT angio neck with con, CT angio head w con CLINICAL HISTORY: 23 years-old Female with thalamic stroke. Acute subcentimeter infarction of the medial left thalamus. Acute vision changes with headache COMPARISON STUDY: MRI brain of same day TECHNIQUE: Following the IV administration of 1 20 mL of Optiray 320, CT angiogram of the head and ne ck was performed from the aortic arch to the skull base. Images are reviewed in the axial, sagittal, and coronal planes. 3-D MIPS images are created and assessed. IV contrast was administered without co mplication. All measurements were calculated based on NASCET criteria. A dose lowering technique was utilized adhering to the principles of ALARA. CT DOSE: 540.82 mGy.cm FINDINGS: Imaged opacified pulmonary tree all tree is unremarkable. Normal appearance of the aortic arch. Paten cy of the imaged bilateral subclavian arteries. Patent bilateral common and internal carotid arteries . Bilateral middle and anterior cerebral arteries are also widely patent and within normal limits. An terior communicating artery appears normal and patent. Dominant left vertebral artery. Patent vertebr al and basilar arteries. Bilateral posterior cerebral arteries are also patent. No aneurysm, dissecti on, high-grade stenosis or proximal branch occlusion. Cerebral venous sinuses appear patent. Lung apices are clear. No pneumothorax. Soft tissues are unremarkable. Bones appear intact. IMPRESSION:Unremarkable CTA of the head and neck without aneurysm, dissection, high-grade stenosis or proximal branch occlusion. The above report was generated using voice recognition software. It may contain grammatical, syntax o r spelling errors. Electronically signed by: Miguel Mueller M.D. 01/02/2019 8:42 AM
--- NOTE | 2019-01-02 08:57 | Magnetic Resonance Report ---
MR brain MS wo/w con HISTORY: 23 years-old Female diplopia, AMS acute double vision with headache COMPARISON: Head CT of same day, brain MRI 12/06/2015 TECHNIQUE: Multiplanar multisequence MRI of the brain was obtained both with and without the use of 6 .0 mL Gadavist utilizing MS protocol. FINDINGS: Distribution Center Manager localizer images demonstrate no gross extracranial abnormality. 9 mm ovoid focus of restricted diffusion noted about the medial left thalamus with slightly increased T2/FLAIR signal (please see im age 11 series 4 and image 15 series 6). No acute or subacute territorial infarct. Artifact from the p atient's left sided earring limits the study. Midline structures including the corpus callosum, brain stem, optic chiasm, pituitary and pineal glands appear unremarkable on the sagittal T1 series. Low-ly ing cerebellar tonsils extend 3 mm below the foramen magnum. Imaged cervical spine is unremarkable. N o acute intracranial hemorrhage, midline shift, abnormal extra axial collection, hydrocephalus or int racranial mass. No abnormal intra-axial or extra-axial enhancement. No significant T2/FLAIR signal ab normalities of the brain parenchyma identified to suggest demyelinating disease. Major flow voids at the level of the skull base appear patent. Mastoid air cells appear clear. Mild m ucosal thickening of the ethmoid air cells and nasal turbinates. Skull, orbits and soft tissues are u nremarkable. IMPRESSION: 1. 9 mm focus of nonenhancing restricted diffusion with mildly increased T2/FLAIR signal about the me dial left thalamus is suggestive of an acute lacunar infarction. 2. No abnormal enhancement. 3. No evidence of demyelinating disease. The above report was generated using voice recognition software. It may contain grammatical, syntax o r spelling errors. Electronically signed by: Miguel Mueller M.D. 01/02/2019 8:55 AM
[2019-01-02] MEDS ORDERED: ASPIRIN 81 MG ECTAB PO SCH (09:00)
[2019-01-02] MEDS ORDERED: ATORVASTATIN 40 MG TAB PO SCH (09:00)
[2019-01-02 10:04] LABS: Basophils # (auto) 0.02 K/uL (0-0.2); Basophils % (auto) 0.5 %; Eosinophils # (auto) 0.14 K/uL (0-0.5); Eosinophils % (auto) 3.2 %; Hematocrit (blood only) 38.6 % (37-47); Hemoglobin 13.5 g/dL (12.0-16.0); Immature Granulocytes # (auto) 0.01 K/uL (0.00-0.02); Immature Granulocytes % (auto) 0.2 %; Lymphocytes # (auto) 1.49 K/uL (1.2-3.4); Lymphocytes % (auto) 33.6 %; Mean Corpuscular Volume 84.3 fL (80-100); Mean Platelet Volume 10.1 fL (7.4-10.4); Monocytes % (auto) 6.8 %; Neutrophils # (auto) 2.47 K/uL (1.4-6.5); Neutrophils % (auto) 55.7 %; Platelet Count 207 K/uL (130-400); RDW Standard Deviation 39.3 fL (36.4-46.3); Red Blood Count 4.58 M/uL (4.2-5.4); White Blood Count 4.43 K/uL (4.8-10.8)
[2019-01-02 10:36] LABS: BUN Creatinine Ratio 9.7 (10-20); Calcium 8.9 mg/dl (8.5-10.1); Creatinine Clr Calc Pharmacy 105.5 ml/min; Potassium 3.5 mmol/L (3.5-5.1)
--- NOTE | 2019-01-02 11:35 | Neurology Consultation ---
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 Her symptoms are completely resolved and she is neurologically intact at this time. Her MRI completed yesterday did suggest a possible infarct located within the medial left thalamus. However, I do not find any localizable deficits on her assessment this morning. This patient does have a history of migraine with aura and has been taking an estrogen-containing oral contraceptive which may increase stroke risk. I would recommend discontinuing her estrogen containing oral contraceptive. She does not have other known cardiovascular risk factors and is otherwise healthy. I agree with additional testing as ordered including assessment of a hypercoagulable state, and echocardiography. If her transthoracic echocardiogram is unremarkable I would recommend obtaining a transesophageal study to exclude occult PFO. I agree with daily low-dose aspirin. Atorvastatin is also reasonable although her lipid panel appears normal and she does not have evidence of atherosclerotic changes on CT angiography. Alternatively, an atypical demyelinating episode is not completely excluded. However, demyelination within the deep charles matter of the brain would be considered atypical for multiple sclerosis. NMO spectrum disorders may present with brainstem or thalamic demyelination. However, this patient does not present with optic neuritis or a spinal myelopathy which makes this diagnosis unlikely. Furthermore, her clinical episode was of rather abrupt onset and has resolved. Therefore, her episode timing is more suggestive of a vascular event. Basilar migraine is also possible given her history of migraine with aura. Changes on diffusion-weighted imaging suggestive of stroke have been described in individuals with migraine, so-called "migrainous stroke." This diagnosis is certainly possible, if not probable, but does not obviate the need for full stroke assessment as above. Again, discontinuing the estrogen containing oral contraceptive is recommended. I would not recommend starting a migraine preventive medication in the acute setting. Case discussed with Dr. Morales, attending hospitalist. History of Present Illness Requesting Physician: Nate Li Attending Physician: Rosalio Morales MD History of Present Illness The patient is a 23-year-old female with a chief complaint of dizziness and associated blurry vision that she noted upon awakening yesterday morning. She complains of a perception of diplopia with horizontal and vertical object separation, with 1 of these objects tilted to the side. This visual perception would improve with closing either eye. She also developed speech changes characterized by nonsensical speech, apparent confusion, and a perception of vertigo. The patient also recalls having a feeling of heaviness or weakness affecting the right hand as well as a mild headache. The above symptoms have completely resolved. Past medical history notable for migraine with aura with episodes occurring infrequently but typically characterized by peripheral vision loss to either the left or right side. She is otherwise physically healthy and does not have any known history of cardiopulmonary disease, autoimmune condition, DVT or thromboembolic disorder. She does take an estrogen-containing oral contraceptive. She does not smoke or have a history of any known cardiovascular risk factors such as diabetes mellitus, hypertension, or hyperlipidemia. She denies fevers, chills, neck stiffness, or any recent illness of significance. Allergies Allergy/AdvReac Type Severity Reaction Status Date / Time No Known Allergies Allergy Unverified 01/01/19 17:14 Home Medications Home Medications Medication Instructions Recorded Confirmed Type doxycycline monohydrate 50 mg 50 mg PO BID #30 tab 11/02/18 01/01/19 History tablet drospirenone-ethinyl estradiol 1 tab PO DAILY 01/01/19 01/01/19 History [Ocella] Patient History Medical History Acne Social History Preferred Language: Latvian Beliefs That Will Affect Care: None marital status: Single Current Living Situation: Family current occupational status: employed current occupation: direct support Other Information That Helps Us Care for You: No Feels Safe at Home: Yes Safety Concerns: Feels Safe At This Time Smoking Status: Never smoker Second Hand Exposure: No ; Hx Alcohol Use: No Hx Substance Use: No Dental Care, Regularly: Yes Physical Activity Frequency: Does not Exercise Review of Systems Constitutional: no fever, no chills, no sweats, no body aches, no fatigue and no malaise Eyes: as per Subjective / HPI and + diplopia; no blind spots and no photophobia Ear, Nose, Mouth, Throat: no ear pain, no tinnitus and no hearing loss Respiratory: no cough and no dyspnea Cardiovascular: no chest pain and no palpitations Gastrointestinal: no nausea and no vomiting Genitourinary: no dysuria and no urinary frequency Musculoskeletal: + back pain (Reports history of intermittent low back pain due to mild scoliosis.); no neck pain and no myalgia Integumentary: no rash and no lesions Neurologic: as per Subjective / HPI Psychiatric: no depression and no anxiety Hematologic / Lymphatic: no easy bleeding, no easy bruising and no lymphadenopathy Physical Exam Physical Exam: The patient is a well-developed, well-nourished adult female. She is alert and fully oriented. Recent and remote memory intact. Attention and concentration normal. Patient exhibits a normal spontaneous speech pattern. She is able to name objects and repeat phrases. Patient exhibits an age- appropriate fund of knowledge and normal comprehension of vocabulary. Visual jacinto full to confrontation. Visual acuity normal. Pupils equal round reactive to light and accommodation. Eye movements normal. There is no nystagmus. Facial sensation intact. There is no facial droop or weakness. Hearing intact bilaterally. Palate elevates to midline. Shoulder shrug intact. Tongue protrudes to midline. Sensation intact to all modalities in all 4 limbs. There is no hemisensory deficit. Deep tendon reflexes are intact and symmetrical for the arms and legs. Plantar responses downgoing bilaterally. There is no dysdiadochokinesia or dysmetria with [id number] or gpkd-[id number] bilaterally. Ophthalmoscopic examination reveals normal-appearing optic disks and posterior segments. No papilledema or hemorrhages. Carotid pulses normal bilaterally, no bruits to auscultation. Gait and station normal. Patient exhibits normal muscle strength and tone for all 4 limbs. There is no atrophy. No abnormal movements observed. Results & Data Vital Signs (Past 12 Hours) Vital Signs Temp Pulse Resp BP BP Pulse Ox 01/02/19 07:23 36.7 C 77 18 100/51 L 98 01/02/19 03:20 36.6 C 78 18 125/73 94 01/02/19 00:16 36.8 C 89 16 114/71 98 01/01/19 23:03 36.7 C 82 20 115/84 98 Laboratory Results WBC 4.43, hemoglobin 13.5, hematocrit 38.6, platelet count 207, ESR 16, sodium 141, potassium 3.5, BUN 8, creatinine 0.79, glucose 89, calcium 8.9, triglycerides 123, cholesterol 173, LDL 91, VLDL 25, HDL 57, vitamin B12 400, folate greater than 24.00, TSH 0.622, hCG negative. Lyme antibodies negative, HIV testing negative. Urine drug screen and alcohol level negative. Lumbar puncture/CSF analysis reveals clear colorless CSF, no xanthochromia, CSF WBC 1, CSF RBC 0, CSF total protein 34.[address] of the head is negative for hemorrhage or acute process. No significant abnormalities. I reviewed the images as well as the radiologist interpretation of this test. CT angiography of the head and neck unremarkable. No evidence for aneurysm, dissection, stenosis, or proximal branch occlusion. MRI of the brain reveals a 9 mm focus of nonenhancing restricted diffusion with mildly increased T2/flair signal about the medial left thalamus suggestive of an acute lacunar infarct. There is some metallic artifact from the left ear which partially limits the study. There are no other significant abnormalities observed throughout the brain parenchyma. There is incidental 3 mm cerebellar tonsillar ectopia. I reviewed the images as well as radiology interpretation of this test.
[2019-01-02] MEDS ORDERED: STROKE PATIENT DISCHARGE STA (13:25)
--- NOTE | 2019-01-02 13:58 | Pharmacy Report ---
Pharmacist Stroke Counseling - Date of Service January 02, 2019 - Scope: Pharmacy has been consulted to provide medication discharge counseling for this patient admitted with possible stroke as per the Pharmacist Discharge Counseling for Stroke Patients Protocol. - Medications on Discharge: Home Medications Medication Instructions Recorded Confirmed doxycycline monohydrate 50 mg 50 mg PO BID #30 tab 11/02/18 01/01/19 tablet New Rx's Medication Instructions Recorded aspirin [Ecotrin Low Strength] 81 mg PO QAM #1 tab 01/02/19 - Action: The above medications, specifically ones for stroke treatment/prophylaxis, have been reviewed in detail with the patient prior to discharge. This includes indication, common adverse reactions, drug interactions, and medication administration. Medication counseling has been employed using the teach-back method to ensure understanding. - Outcome: The patient has demonstrated understanding of the medications. Please note, they are aware that the pharmacist will call them within 72 hours post-discharge to confirm that the appropriate medications are being taken and answer any further medication related questions the patient might have at that time. Contact information Individual to be contacted: self Relationship to patient (if applicable): --- Phone number: [phone] Best time to call: afternoon Additional comments: -discussed aspirin with patient -nurse, Sergio, to call Dr Morales to remind him to put reason why no Lipitor in his discharge summary (also needs to call for work excuse) Thank you for allowing pharmacy to be involved in the care of this patient. Please call [phone] or [phone] with any additional questions
--- NOTE | 2019-01-02 16:00 | Discharge Summary ---
Date of Service January 02, 2019 Admission HPI Per Admitting Provider 23-year-old female with possible history of anxiety/depression per mother presented to the emergency room with male friend for concern of difficulty seeing/double vision, headache and lightheadedness which started earlier today. When I asked patient what brought her to the hospital, she reports "food and drink". Per male friend who I spoke to over the phone they had lunch at a [place] restaurant in town then went to a store downtown at which point she reported trouble seeing then she decided to drive to the emergency room but when she got close to the hospital she reported difficulty seeing so he drove her the rest of the way to the emergency room. Per male friend she could not write her name in the emergency room, was "seeing sideways", reported room spinning sensation and headache. He also noted that she was slurring her speech. At the time of evaluation patient reported improved vision, headache, lightheadedness. She denied any chest pain, shortness of breath, nausea, vomiting, abdominal pain, constipation, diarrhea, dysuria. Per mother patient appears somewhat altered as she is saying things that do not make sense for instance even when I asked when her last bowel movement was she reports yesterday and says it was "white". Per mother patient had recognized mother. Mother reports possible history of anxiety or depression in the past but denies any other known psychiatric history. Family history of anxiety/depression but no other psychiatric conditions. Mother is unaware if patient uses any recreational drugs. Patient denied drinking alcohol or using any recreational drugs today or yesterday friend confirmed as well. Of note patient has started a new job about a week ago at [employer]. However mother reports patient has not complained of any significant stress related to new job. Mother spoke to patient yesterday and patient appeared to be at baseline. On revisit: Patient more coherent. Reports had another episode earlier and does not recall saying her bowel movement was white in color. Reports that was not the case it was normal yesterday. Reports occasionally getting some blurry vision which she previously believed was related to her contacts especially when standing. Denies any gait issues in the past. Reports trouble seeing which brought her to the emergency room. Had mild headache earlier today which has now improved and room spinning sensation with double vision episode. Also reports not hydrating well over the past few days she did not have drinking water at home. Denies any marijuana use now used to smoke a 2 to 3 years ago. Yesterday had half a glass of alcohol and denies any recreational drug use Principal Diagnosis Probably thalamic stroke Discharge Exam Constitutional WD/WN, vitals as above Eyes EOM intact bilaterally; no conjunctival abnormality ENMT external ear and nose normal, oropharynx normal Neck trachea midline, no thyromegaly normal visual inspection Respiratory normal respiratory effort, lungs clear to auscultation no respiratory distress Cardiovascular RRR, no murmur, no edema Gastrointestinal (Abdomen) Inspection/Auscultation: abdomen normal to inspection; abdomen not distended Musculoskeletal no cyanosis or clubbing, extremities motor strength 5/5 Skin no rashes, warm and dry Neurologic moves all extremities and awake Psychiatric Orientation: alert, oriented to person and cooperative Discharge Data Allergies Allergy/AdvReac Type Severity Reaction Status Date / Time No Known Allergies Allergy Unverified 01/01/19 17:14 Consultations 01/01/19 20:21 ED Decision to Admit Stat 01/01/19 22:15 Consult Neurology Routine 01/02/19 13:21 Consult [facility] architectural manager Routine Ordered Studies 01/01/19 15:26 CT head/brain wo con Stat 01/01/19 21:11 MR brain MS wo/w con Urgent 01/02/19 00:38 CT angio head w con Urgent CT angio neck with con Urgent 01/02/19 00:49 US venous doppler LE LT Urgent Hospital Course (1) 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 - CTA head/neck were without aneurysm, dissection, high-grade stenosis or proximal branch occlusion. - Seen by neurology who feel this is most likely a thromboembolic CVA, possibly caused by increase risk from her oral contraceptive and having migraines with aura. Other possibilities include an atypical demylinating disease or basilar migraine. - Labs for multiple sclerosis and hypercoagulable state were sent off, and pending on discharge. - A statin or cholesterol medication was not prescribed as it was felt her possible CVA not traditional thrombotic event and a statin would provide minimal benefit at stroke prevention. - TTE showed possible PFO. - Recs included: 1) Stop OCP. This was discussed multiple times with the patient. Mirena may be a better option. 2) Start aspirin 81mg PO daily. 3) Get VIVIAN with cardiology in the next 1-2 weeks. 4) Follow up with neurology in 1-2 weeks to follow up on the other lab tests sent from her CSF and blood. (2) Acne vulgaris: - Can continue doxycycline, but stop OCP as above. Total Time Total Time Spent Total Time Spent (In Minutes): 45 Total Time Includes: Examination of the Patient, Discharge Planning, Medication Reconciliation and Communication With Other Providers Discharge Plan Discharge Items Patient Disposition: Home - Self-Care Reason For Visit: DIPLOPIA Discharge Diagnosis: Likely stroke Condition: Good Discharge Goals: Decrease discomfort, Diagnostic testing and Therapeutic intervention Activity: Resume your previous activity Lifting: Gradually increase as tolerated Exercise/Sports: Gradually increase as tolerated Driving/Machine Use Comment: No driving until cleared by neurology. Non-emergency contact: Primary Care Provider, Hat Block Maker and Neurologist Call non-emergency contact if: your symptoms worsen Follow-up/Referrals: Sergio Pickard MD [Physician] - (Please see Dr. Pickard in 1-2 weeks for follow up.) Keshav Lopez MD [Physician] - (Please call his office to help schedule the echo of your heart if you don't hear anything by Thursday.) Ingrid Cantu MD [Primary Care Provider] - Diet: Regular Addtl Provider Instructions: Ms. Resendiz, Emerson were admitted for vision issues, dizziness, and weakness of the right hand. Our MRI of the brain showed an area in the right thalamus that is concerning for a stroke. You have a few risk factors such as using an oral contraceptive and having migraines with aura. Please stop your oral contraceptive as this could have been a factor. Please start taking a baby aspirin (81mg) every day. Please follow up with Dr. Pickard in his office in 1-2 weeks to follow up and check your test results. We will have our office employee (Gia Moore) call you. If you don't hear anything by Thursday, please call the provided number. Please return to the hospital with any further changes in vision, slurred speech, weakness or numbness, or any other concerning symptoms. Prescriptions: New aspirin [Ecotrin Low Strength] 81 mg Tablet,Delayed Release (Dr/Ec) 81 mg PO QAM Qty: 1 RF: 0 Continued doxycycline monohydrate 50 mg tablet 50 mg PO BID Qty: 30 RF: 0 Discontinued drospirenone-ethinyl estradiol [Ocella] 3-0.03 mg tablet 1 tab PO DAILY RF: 0 Stand-Alone Forms: Medications to Prevent Stroke, [facility], Work/School Release (Inpt) Discharge Orders: Discharge Order (Routine); Ordered 01/02/19 Ordered By: Rosalio Morales Admission Data Admit Date/Time: 01/01/19 21:24 Attending Provider: Rosalio Morales Admit Provider: Bj Cruz Primary Care Provider: Ingrid Cantu Other Providers: Sergio Pickard ; Rosalio Morales ; Bj Cruz Service: Telemetry Other Interventions: Discharge Summary Assessment (RN) Last Done: 01/02/19 13:46 DC Date/Time DO NOT enter until pt leaves facility: 01/02/19 14:11
[2019-01-03 05:54] LABS: Estimated Average Glucose 94 mg/dl; Hemoglobin A1C 4.9 % (4.5-5.6)
--- NOTE | 2019-01-04 16:00 | Pharmacy Report ---
Pharmacist Post D/C Phone Note - Phone Note: Date of phone call: January 04, 2019. Individual with whom pharmacist spoke to: CAMILO KARICAREN The following questions were reviewed during the phone call with responses listed below each: Can you tell me the medications that you are currently taking as well as when and how you take each medication? -See Table Below When have you missed any doses of your medications? - none What side effects are you having from your medications, specifically, the new medications you were started on? - none reported What questions do you have about your medications? - none so far What problems are you having obtaining your medications? - aspirin was able to be purchased otc When is your next appointment with your primary care doctor? -had an apt yesterday Additional comments: - Patient pleasant to talk with today. Only new medication on discharge was aspirin. Talked about monitoring for any increase in bruising or bleeding. She was not sure if she told her doctor that Aspirin was added to her medication list. Told her that she should call their office and notify them so that her medication list is up to date. Explained that the computer systems do not communicate with one another and likely her provider may have not known. Patient demonstrated understanding. Verified she stopped taking OC as recommended on discharge. States she has a follow up OBGYN appt soon to discuss other non- estrogen options. No other pertinent positives on interview today As per the Pharmacist Discharge Counseling for Stroke Patients Protocol, this phone call has been completed within 72 hours of discharge. Thank you for allowing us to be involved in the care of this patient. Thank you for allowing us to be involved in the care of this patient. - Home Medications: Home Medications Medication Instructions Recorded Confirmed doxycycline hyclate 150 mg PO DAILY 01/03/19 01/03/19 New Rx's Medication Instructions Recorded aspirin [Ecotrin Low Strength] 81 mg PO QAM #1 tab 01/02/19
[2019-01-06 13:21] LABS: Anti Cardiolipin Ab IgG <14 GPL (< = 14); Anti Cardiolipin Ab IgM <12 MPL (< = 12); Anti-Cardiolipin Ab IgA <11 APL (< = 11); Anti-Thrombin III Activity 87 % activity (80-120); B2 Glycoprotein IgA <9 SAU (<=20); B2 Glycoprotein IgG <9 SGU (<=20); B2 Glycoprotein IgM <9 SMU (<=20); Lupus Anticoagulant Negative (Negative); Protein S Functional(Activity) 56 % (60-140)
[2019-01-07 09:23] LABS: Lyme IgG CSF NO BANDS DETECTED; Lyme IgM CSF NO BANDS DETECTED
== END 2019-01-02 14:11 | disposition home or self-care (01) | DRG 65 ==
LOC: ED 14:37 → 4W 21:24 → SUATTDRO 21:24 → 4W 21:44 → 2S 01-02 00:47
DX: R47.01 Aphasia; H53.2 Diplopia; G83.31 Monoplegia, unspecified affecting right dominant side; E87.6 Hypokalemia; Q21.1 Atrial septal defect; T38.4X5A Adverse effect of oral contraceptives, initial encounter; Z79.2 Long term (current) use of antibiotics; Z79.3 Long term (current) use of hormonal contraceptives; R41.82 Altered mental status, unspecified; G43.109 Migraine with aura, not intractable, without status migrainosus; G37.9 Demyelinating disease of central nervous system, unspecified; L70.0 Acne vulgaris; G58.8 Other specified mononeuropathies; R29.701 NIHSS score 1; I63.02 Cerebral infarction due to thrombosis of basilar artery; M79.662 Pain in left lower leg